=== PATIENT | male | born 1975 | race Two or more races ===

== ENCOUNTER 2018-06-14 07:09 | Day surgery (SDC) | payer OTHER ==
[2018-06-14] MEDS ORDERED: PERCOCET 5-3251 EACH PO (10:33)
[2018-06-14] MEDS ORDERED: COLACE100 MG PO (10:33)
== END 2018-06-14 16:00 | disposition home or self-care (01) ==
LOC: CIR.AMB 07:09
DX: K60.3 Anal fistula (principal)

== ENCOUNTER 2018-07-22 11:57 | Emergency (ER) | payer OTHER ==
[~2018-07-22] VITALS: Ht 180.3 cm; Wt 83.0 kg
[~2018-07-22 11:57] MED LIST: COLACE100 MG PO; PERCOCET 5-3251 EACH PO
[2018-07-22] MEDS ORDERED: NEURONTIN300 MG PO (12:15)
== END 2018-07-22 15:24 | disposition home or self-care (01) ==
LOC: ER 11:57
DX: K62.89 Other specified diseases of anus and rectum (principal)

== ENCOUNTER 2018-07-31 12:00 | Inpatient (IN) | payer OTHER ==
[~2018-07-31] VITALS: Ht 182.9 cm; Wt 83.9 kg
[~2018-07-31 12:00] MED LIST changes: +NEURONTIN300 MG PO
[2018-08-02] MEDS ORDERED: NAPROXEN SODIU500 M2 PO (09:40)
[2018-08-02] MEDS ORDERED: TYLENOL EXTRA500 MG PO (09:40)
[2018-08-02] MEDS ORDERED: COLACE100 MG PO (09:40)
== END 2018-08-03 14:19 | disposition home or self-care (01) | DRG 349 ==
LOC: ER 12:00 → SURG 18:57
PROVIDERS: ADMIT Surgery
PROC: 0DBQ0ZZ Excision of Anus, Open Approach (ICD-10-PCS; principal; 2018-07-31)
PROC: 3E0T3BZ Introduction of Anesthetic Agent into Peripheral Nerves and Plexi, Percutaneous Approach (ICD-10-PCS; 2018-07-31)
DX: K60.3 Anal fistula (principal); K62.89 Other specified diseases of anus and rectum

== ENCOUNTER 2019-05-19 06:00 | Day surgery (SDC) | payer OTHER ==
[~2019-05-19 06:00] MED LIST changes: +NAPROXEN SODIU500 M2 PO; +TYLENOL EXTRA500 MG PO
== END 2019-05-19 13:00 | disposition home or self-care (01) ==
LOC: AMB-ENDOS 06:00
DX: K63.5 Polyp of colon (principal)

== ENCOUNTER 2019-10-06 14:32 | Inpatient (IN) | payer OTHER | END 2019-10-07 11:16 | disposition home or self-care (01) | DRG 394 | LOC: ER 14:32 → SEC-K 14:53 → SURH 18:12 → SEC-K 18:13 → SURH 18:26 | PROVIDERS: ADMIT Surgery | DX: K61.0 Anal abscess (principal); K62.5 Hemorrhage of anus and rectum ==